=== PATIENT | female | born 2005 | race Caucasian/White ===

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

== ENCOUNTER 2024-02-13 08:26 | Outpatient (CLI) | payer OTHER, SELFPAY | END 2024-02-13 08:27 | disposition home or self-care (01) | PROVIDERS: PCP Family Medicine; Visit Provider Family Medicine | DX: R53.83 Other fatigue (principal) | CPT/HCPCS: 80048; 82728; 84443 ==

== ENCOUNTER 2024-11-23 15:08 | Outpatient (CLI) | payer OTHER, SELFPAY | END 2024-11-23 15:09 | disposition home or self-care (01) | LOC: FBOREF 15:09 | PROVIDERS: PCP Family Medicine; Visit Provider Family Medicine | DX: D50.9 Iron deficiency anemia, unspecified (principal) | CPT/HCPCS: 82728; 85025 ==

== ENCOUNTER 2025-05-31 09:29 | Outpatient (CLI) | payer OTHER, SELFPAY ==
[2025-05-31 13:50] LABS: Chlamydia DNA Amplified* NOT DETECTED (No Detected); GC DNA Amplified* NOT DETECTED (No Detected)
== END 2025-05-31 09:30 | disposition home or self-care (01) ==
PROVIDERS: PCP Family Medicine; Visit Provider Obstetrics & Gynecology
DX: Z12.4 Encounter for screening for malignant neoplasm of cervix (principal); Z11.3 Encounter for screening for infections with a predominantly sexual mode of transmission
CPT/HCPCS: 87491; 87591; 87624; 87625; 88141; 88142

== ENCOUNTER 2025-06-30 10:00 | Outpatient (CLI) | payer OTHER, SELFPAY | END 2025-06-30 10:01 | disposition home or self-care (01) | LOC: NFLDREF 07-05 15:19 | PROVIDERS: PCP Family Medicine; Referring Provider Family Medicine; Visit Provider Obstetrics & Gynecology | DX: Z13.6 Encounter for screening for cardiovascular disorders (principal); Z11.4 Encounter for screening for human immunodeficiency virus [HIV] | CPT/HCPCS: 80061; 86703 ==